=== PATIENT | female | born 1930 | race Caucasian/White ===

== ENCOUNTER 2018-03-11 13:20 | Inpatient (IN) | payer MEDICARE, OTHER ==
[~2018-03-11] VITALS: Ht 154.9 cm; Wt 50.4 kg
[2018-03-11 14:41] LABS: BASOPHILS % 0.2 % (0.0-1.0); EOSINOPHILS % 0.1 % (0.0-6.0); HEMATOCRIT 34.4 % (34.2-44.1); LYMPHOCYTES % 8.4 % (18.0-39.1); MEAN CORPUSCULAR HEMOGLOBIN 28.9 pg (28-32); MEAN CORPUSCULAR VOLUME 90.5 fL (81-99); MONOCYTES # (AUTO) 0.5 (0.2-0.8); MONOCYTES % 4.3 % (4.4-11.3); NEUTROPHILS # (AUTO) 10.4 (2.1-6.9); NEUTROPHILS % 86.6 % (38.7-80.0); PLATELET COUNT 481 x10e3/uL (140-360); RED CELL DISTRIBUTION WIDTH 13.5 % (11.7-14.4)
[2018-03-11 14:53] LABS: INR 0.9
[2018-03-11 14:54] LABS: PARTIAL THROMBOPLASTIN TIME 34.1 seconds (23.8-35.5)
--- NOTE | 2018-03-11 15:02 | Diagnostic Imaging Report ---
Exam: Radiographs of bilateral hips and pelvis (five views) Comparison: <None.> Findings: There is diffuse osteopenia. Views of bilateral hips demonstrate moderate degenerative changes with joint space narrowing and subchondral sclerosis. No evidence of fracture or malalignment. Frontal radiograph of the pelvis demonstrate no evidence of displaced fracture. There are degenerative changes in the lower lumbar spine and bilateral sacroiliac joints. Bowel gas partially obscures visualization of the right hemisacrum. A linear lucency overlying the right hemisacrum likely represents bowel gas rather than fracture. Impression: No evidence of fracture or malalignment in bilateral hips or pelvis. Bowel gas partially obscures visualization of the right hemisacrum. A linear lucency overlying the right hemisacrum likely represents bowel gas rather than fracture. If there is clinical concern for fracture at this location, dedicated sacral radiographs may be considered. Signed by: Dr. Don Jack MD on 03/11/2018 2:59 PM
[2018-03-11 15:04] LABS: ALANINE AMINOTRANSFERASE 8 IU/L (0-55); ALBUMIN 2.4 g/dL (3.5-5.0); ALBUMIN/GLOBULIN RATIO 0.6 (0.8-2.0); ALKALINE PHOSPHATASE 74 IU/L (40-150); ANION GAP 14.3 mmol/L (8-16); BLOOD UREA NITROGEN 17 mg/dL (7-26); BUN/CREATININE RATIO 23 (6-25); CARBON DIOXIDE 27 mmol/L (22-29); CHLORIDE 93 mmol/L (98-107); CREATINE KINASE 34 IU/L (29-168); CREATININE, SERUM 0.73 mg/dL (0.57-1.11); EST GLOMERULAR FILTRATION RATE > 60 ML/MIN (60-); GLUCOSE 214 mg/dL (74-118); LIPASE 11 U/L (8-78); POTASSIUM 4.3 mmol/L (3.5-5.1); SODIUM 130 mmol/L (136-145)
[2018-03-11] MEDS ORDERED: HEPARIN 25,000 UNIT/D5W 250ML 250 ML IV SCH (15:30)
[2018-03-11 16:28] LABS: BILIRUBIN,URINE NEGATIVE (NEGATIVE); CLARITY,URINE SL CLOUDY (CLEAR); COLOR,URINE YELLOW (YELLOW); KETONES,URINE NEGATIVE (NEGATIVE); LEUKOCYTE ESTERASE ,URINE 2+ (NEGATIVE); NITRITE,URINE NEGATIVE (NEGATIVE); PROTEIN,URINE DIPSTICK NEGATIVE (NEGATIVE); URINE UROBILINOGEN 0.2 mg/dL (0.2 - 1)
[2018-03-11 16:47] LABS: AMORPHOUS SEDIMENT,URINE MODERATE (FEW); BACTERIA,URINE FEW /HPF
[2018-03-11] MEDS ORDERED: HEPARIN SOD (PORCINE) 5,000 UNIT/ML VIAL IV ONE (17:00)
[2018-03-11] MEDS: CEFTRIAXONE SOD 1 GM VIAL IV SCH (17:09)
[2018-03-11] MEDS: HEPARIN 25,000U/0.45% NS 250ML 800 UNIT in SODIUM CHLORIDE 0.9% 250ML 0 ML IV SCH (17:42)
[2018-03-11] MEDS ORDERED: DEXTROSE 50% SYRINGE 50 ML IV PRN (18:15)
[2018-03-11] MEDS ORDERED: IOPAMIDOL 370 MG/ML 200 ML INFUS..BTL INJ ONE (18:33)
[2018-03-11] MEDS ORDERED: SODIUM CHLORIDE 0.9% 50ML 50 ML ONE ×2 (18:33)
[2018-03-11 19:40] VITALS: BP 115/56
[2018-03-11 19:49] VITALS: BP 115/56
[2018-03-11] MEDS: INSULIN REGULAR, HUMAN 100 UNIT/1 ML 3ML VIAL SQ SCH (19:50)
--- NOTE | 2018-03-11 20:33 | Diagnostic Imaging Report ---
EXAMINATION: CT of the chest, abdomen and pelvis with contrast. TECHNIQUE: Helical CT images of the chest, abdomen and pelvis were performed from the lung apices to the lesser trochanters after the intravenous administration of 150 cc of Isovue 300 and the oral administration of none. Coronal and sagittal reformatted images were obtained. Dose modulation, iterative reconstruction, and/or weight based adjustment of the mA/kV was utilized to reduce the radiation dose to as low as reasonably achievable. COMPARISON: None. CLINICAL HISTORY:Weakness and weight loss DISCUSSION: CHEST: LINES/TUBES: None. LUNGS AND AIRWAYS: The lungs and airways are normal with no focal abnormality demonstrated. PLEURA: The pleural spaces are clear. HEART AND MEDIASTINUM: The thyroid gland is normal. Coronary artery calcifications. Hiatal hernia. LYMPH NODES: No significant mediastinal, hilar or axillary lymphadenopathy is seen. BONES AND SOFT TISSUES: No bony destructive lesions. No soft tissue abnormalities. ABDOMEN/PELVIS: HEPATOBILIARY:No focal hepatic lesions. No biliary ductal dilation. The gallbladder is normal. SPLEEN: No splenomegaly. PANCREAS: No focal masses or ductal dilatation. ADRENALS: No adrenal nodules. KIDNEYS/URETERS: The kidneys are symmetric with normal enhancement. No solid mass lesions. Moderate bilateral chronic hydronephrosis PELVIC ORGANS/BLADDER: Bladder is mildly deviated rightward. Complex mass midline of the pelvis measures 13.5 cm in craniocaudal dimension by 12.5 x 11.8 cm in axial dimension. The mass is peripherally solid with central cystic component versus necrosis. The mass appears to be drained by the right gonadal vein. The uterus is not visualized. PERITONEUM/RETROPERITONEUM: No free air or fluid. LYMPH NODES: No intra-abdominal,retroperitoneal, pelvic or inguinal lymphadenopathy. VESSELS: Vascular calcifications. GI TRACT: No distention or wall thickening. 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 IMPRESSION: 13.5 cm pelvic solid and cystic mass favored to be adnexal in origin such as an ovarian epithelial neoplasm. Chronic moderate hydronephrosis of the kidneys secondary to pelvic mass. Signed by: Dr. Dandre Rodrigues M.D. on 03/11/2018 8:30 PM
[2018-03-11] MEDS: TEMAZEPAM 15 MG CAP PO PRN (21:49)
[2018-03-11 22:55] VITALS: BP 115/56
[2018-03-12] VITALS (7 sets, daily range): BP systolic 104–117; BP diastolic 52–68
[2018-03-12 00:44] LABS: INR 0.94; PROTHROMBIN TIME 13.4 seconds (11.9-14.5)
[2018-03-12] MEDS ORDERED: AGGRENOX 25 MG-1 CAP (00:53)
[2018-03-12] MEDS ORDERED: ARICEPT5 MG PO (00:53)
[2018-03-12] MEDS: CEFTRIAXONE SOD 1 GM VIAL IV SCH ×2 (04:01→17:30)
[2018-03-12 06:54] LABS: BASOPHILS % 0.3 % (0.0-1.0); EOSINOPHILS # (AUTO) 0.1 (0.0-0.4); EOSINOPHILS % 0.6 % (0.0-6.0); HEMATOCRIT 32.4 % (34.2-44.1); HEMOGLOBIN 10.3 g/dL (12.0-16.0); LYMPHOCYTES # (AUTO) 1.5 (1.0-3.2); LYMPHOCYTES % 17.6 % (18.0-39.1); MEAN CORPUSCULAR HEMOGLOBIN 28.9 pg (28-32); MEAN CORPUSCULAR HGB CONC 31.8 g/dL (31-35); MEAN CORPUSCULAR VOLUME 90.8 fL (81-99); MONOCYTES # (AUTO) 0.6 (0.2-0.8); MONOCYTES % 6.8 % (4.4-11.3); NEUTROPHILS # (AUTO) 6.5 (2.1-6.9); NEUTROPHILS % 74.2 % (38.7-80.0); PLATELET COUNT 439 x10e3/uL (140-360); RED BLOOD COUNT 3.57 x10e6/uL (3.6-5.1); RED CELL DISTRIBUTION WIDTH 13.8 % (11.7-14.4)
[2018-03-12] MEDS: HEPARIN 25,000U/0.45% NS 250ML 800 UNIT in SODIUM CHLORIDE 0.9% 250ML 0 ML IV SCH ×2 (07:00→13:20)
[2018-03-12 07:16] LABS: CREATINE KINASE 30 IU/L (29-168)
[2018-03-12 07:18] LABS: ALANINE AMINOTRANSFERASE 6 IU/L (0-55); ALBUMIN 2.1 g/dL (3.5-5.0); ALBUMIN/GLOBULIN RATIO 0.6 (0.8-2.0); ALKALINE PHOSPHATASE 64 IU/L (40-150); ANION GAP 16.3 mmol/L (8-16); BLOOD UREA NITROGEN 15 mg/dL (7-26); BUN/CREATININE RATIO 22 (6-25); CALCIUM 8.7 mg/dL (8.4-10.2); CARBON DIOXIDE 27 mmol/L (22-29); CHLORIDE 98 mmol/L (98-107); CREATININE, SERUM 0.69 mg/dL (0.57-1.11); EST GLOMERULAR FILTRATION RATE > 60 ML/MIN (60-); GLUCOSE 87 mg/dL (74-118); POTASSIUM 4.3 mmol/L (3.5-5.1); SODIUM 137 mmol/L (136-145)
[2018-03-12] MEDS: INSULIN REGULAR, HUMAN 100 UNIT/1 ML 3ML VIAL SQ SCH ×4 (07:30→21:00)
[2018-03-12] MEDS: ASPIRIN 81 MG ENTERIC COATED PO SCH (08:37)
[2018-03-12] MEDS: TEMAZEPAM 15 MG CAP PO PRN (21:11)
[2018-03-13] VITALS (7 sets, daily range): BP systolic 99–125; BP diastolic 54–63
[2018-03-13] MEDS: CEFTRIAXONE SOD 1 GM VIAL IV SCH ×2 (05:39→16:35)
[2018-03-13] MEDS: HEPARIN 25,000U/0.45% NS 250ML 800 UNIT in SODIUM CHLORIDE 0.9% 250ML 0 ML IV SCH (07:00)
[2018-03-13] MEDS: INSULIN REGULAR, HUMAN 100 UNIT/1 ML 3ML VIAL SQ SCH ×4 (07:30→20:51)
[2018-03-13] MEDS: ASPIRIN 81 MG ENTERIC COATED PO SCH (07:44)
[2018-03-13] MEDS ORDERED: HEPARIN 25,000U/0.45% NS 250ML 800 UNIT in SODIUM CHLORIDE 0.9% 250ML 0 ML IV SCH (13:30)
[2018-03-13] MEDS: TEMAZEPAM 15 MG CAP PO PRN (21:27)
[2018-03-14] VITALS (7 sets, daily range): BP systolic 102–125; BP diastolic 53–58
[2018-03-14] MEDS: CEFTRIAXONE SOD 1 GM VIAL IV SCH ×2 (04:56→16:53)
[2018-03-14] MEDS: HEPARIN 25,000U/0.45% NS 250ML 800 UNIT in SODIUM CHLORIDE 0.9% 250ML 0 ML IV SCH (07:00)
[2018-03-14] MEDS: INSULIN REGULAR, HUMAN 100 UNIT/1 ML 3ML VIAL SQ SCH ×4 (07:30→21:00)
[2018-03-14] MEDS: ASPIRIN 81 MG ENTERIC COATED PO SCH (08:13)
[2018-03-14] MEDS: NYSTATIN 15 GM POWDER UD BTL TOP SCH ×2 (16:25→21:00)
[2018-03-14] MEDS: BALSAM PERU/CASTOR OIL 60 GM OINT...G. TP SCH (21:00)
[2018-03-14] MEDS: TEMAZEPAM 15 MG CAP PO PRN (21:00)
[2018-03-15] VITALS (8 sets, daily range): BP systolic 92–115; BP diastolic 51–62
[2018-03-15] MEDS: HEPARIN 25,000U/0.45% NS 250ML 800 UNIT in SODIUM CHLORIDE 0.9% 250ML 0 ML IV SCH (02:26)
[2018-03-15] MEDS: CEFTRIAXONE SOD 1 GM VIAL IV SCH ×2 (05:00→17:30)
[2018-03-15 06:45] LABS: BASOPHILS % 0.2 % (0.0-1.0); EOSINOPHILS # (AUTO) 0.1 (0.0-0.4); EOSINOPHILS % 0.5 % (0.0-6.0); HEMATOCRIT 31.9 % (34.2-44.1); HEMOGLOBIN 10.4 g/dL (12.0-16.0); LYMPHOCYTES # (AUTO) 1.5 (1.0-3.2); LYMPHOCYTES % 11.7 % (18.0-39.1); MEAN CORPUSCULAR HEMOGLOBIN 29.2 pg (28-32); MEAN CORPUSCULAR HGB CONC 32.6 g/dL (31-35); MEAN CORPUSCULAR VOLUME 89.6 fL (81-99); MONOCYTES # (AUTO) 0.6 (0.2-0.8); MONOCYTES % 4.3 % (4.4-11.3); NEUTROPHILS # (AUTO) 10.9 (2.1-6.9); NEUTROPHILS % 82.8 % (38.7-80.0); PLATELET COUNT 494 x10e3/uL (140-360); RED BLOOD COUNT 3.56 x10e6/uL (3.6-5.1); RED CELL DISTRIBUTION WIDTH 14.2 % (11.7-14.4)
[2018-03-15 07:13] LABS: ANION GAP 14.8 mmol/L (8-16); BLOOD UREA NITROGEN 16 mg/dL (7-26); BUN/CREATININE RATIO 22 (6-25); CALCIUM 8.6 mg/dL (8.4-10.2); CARBON DIOXIDE 28 mmol/L (22-29); CHLORIDE 97 mmol/L (98-107); CREATININE, SERUM 0.72 mg/dL (0.57-1.11); EST GLOMERULAR FILTRATION RATE > 60 ML/MIN (60-); GLUCOSE 96 mg/dL (74-118); MAGNESIUM 1.7 MG/DL (1.3-2.1); POTASSIUM 4.8 mmol/L (3.5-5.1); SODIUM 135 mmol/L (136-145)
[2018-03-15] MEDS: INSULIN REGULAR, HUMAN 100 UNIT/1 ML 3ML VIAL SQ SCH ×4 (07:30→20:59)
[2018-03-15 07:33] LABS: INR 0.87; PROTHROMBIN TIME 12.7 seconds (11.9-14.5)
[2018-03-15 07:35] LABS: PARTIAL THROMBOPLASTIN TIME 63.9 seconds (23.8-35.5)
[2018-03-15] MEDS: NYSTATIN 15 GM POWDER UD BTL TOP SCH ×2 (08:52→20:59)
[2018-03-15] MEDS: ASPIRIN 81 MG ENTERIC COATED PO SCH (08:52)
[2018-03-15] MEDS: BALSAM PERU/CASTOR OIL 60 GM OINT...G. TP SCH ×2 (08:52→20:59)
[2018-03-15] MEDS: TEMAZEPAM 15 MG CAP PO PRN (20:58)
[2018-03-16] VITALS (7 sets, daily range): BP systolic 97–142; BP diastolic 62–75
[2018-03-16] MEDS: CEFTRIAXONE SOD 1 GM VIAL IV SCH ×2 (04:25→17:19)
[2018-03-16] MEDS: INSULIN REGULAR, HUMAN 100 UNIT/1 ML 3ML VIAL SQ SCH ×4 (07:30→21:00)
[2018-03-16] MEDS: BALSAM PERU/CASTOR OIL 60 GM OINT...G. TP SCH ×2 (08:00→21:08)
[2018-03-16] MEDS: NYSTATIN 15 GM POWDER UD BTL TOP SCH ×2 (08:00→21:08)
[2018-03-16] MEDS: ASPIRIN 81 MG ENTERIC COATED PO SCH (09:10)
--- OUTSIDE RECORDS SUMMARY | 2018-03-16 13:04 | XMS REPORT ---
Author Author [facility] Address Unknown Phone Unavailable Care Team Providers Care Hand Etcher Helper Name Role Phone KELSIE DE LA ROSA Unavailable Unavailable Problems This patient has no known problems. Allergies, Adverse Reactions, Alerts This patient has no known allergies or adverse reactions. Medications This patient has no known medications. Results Test Description Test Time Test Comments Text Results Atomic Results Result Comments CT ABDOMEN/PELVIS W 2018-03-11 20:18:00 [place] [address] Patient Name: MARI DASH MR #: [id number] : 1930 Age/Sex: 87/F Req #: [id number] [facility] Physician: KELSIE DE LA ROSA MD Ordered by: SID LEAHY MD Report #: [id number] Location: MED/SURG3 Room/Bed: [facility] Procedure: [id number] CT/CT ABDOMEN/PELVIS W Exam Date: 03/11/18 Exam Time: 1628 REPORT STATUS: Signed EXAMINATION: CT of the chest, abdomen and pelvis with contrast. TECHNIQUE: Helical CT images of the chest, abdomen and pelvis were performed from the lung apices to the lesser trochanters after the intravenous administration of 150 cc of Isovue 300 and the oral administration of none. Coronal and sagittal reformatted images were obtained. Dose modulation, iterative reconstruction, and/or weight based adjustment of the mA/kV was utilized to reduce the radiation dose to as low as reasonably achievable. COMPARISON: None. CLINICAL HISTORY:Weakness and weight loss DISCUSSION: CHEST: LINES/TUBES: None. LUNGS AND AIRWAYS: The lungs and airways are normal with no focal abnormality demonstrated. PLEURA: The pleural spaces are clear. HEART AND ME DIASTINUM: The thyroid gland is normal. Coronary artery calcifications. Hiatal hernia. LYMPH NODES: No significant mediastinal, hilar or axillary lymphadenopathy is seen. BONES AND SOFT TISSUES: No bony destructive lesions. No soft tissue abnormalities. ABDOMEN/PELVIS: HEPATOBILIARY:No focal hepatic lesions. No biliary ductal dilation. The gallbladder is normal. SPLEEN: No splenomegaly. PANCREAS: No focal masses or ductal dilatation. ADRENALS: No adrenal nodules. KIDNEYS/URETERS: The kidneys are symmetric with normal enhancement. No solid m ass lesions. Moderate bilateral chronic hydronephrosis PELVIC ORGANS/BLADDER: Bladder is mildly deviated rightward. Complex mass midline of the pelvis measures 13.5 cm in craniocaudal dimension by 12.5 x 11.8 cm in axial dimension. The mass is peripherally solid with central cystic component versus necrosis. The mass appears to be drained by the right gonadal vein. The uterus is not visualized. PERITONEUM/RETROPERITONEUM: No free air or fluid. LYMPH NODES: No intra-abdominal,retroperitoneal, pelvic or inguinal lymphadenopathy. VESSELS: Vascular calcifications. GI TRACT: No distention or wall thickening. 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 IMPRESSION: 13.5 cm pelvic solid and cystic mass favored to be adnexal in origin such as an ovarian epithelial neoplasm. Chronic moderate hydronephrosis of the kidneys secondary to pelvic mass. Signed by: Dr. Loan Stockton M.D. on 03/11/2018 8:30 PM Dictated By: LOAN STOCKTON MD 29 Transcribed By: CARLENE on 03/11/182029 COPY TO: SID LEAHY MD CT CHEST W 2018-03-11 20:18:00 [place] [address] Patient Name: MARI DASH MR #: [id number] : 1930 Age/Sex: 87/F Req #: [id number] Adm Physician: KELSIE DE LA ROSA MD Ordered by: SID LEAHY MD Report #: [id number] Location: [facility] Room/Bed: [facility] Procedure: [id number] CT/CT CHEST W Exam Date: 03/11/18 Exam Time: 1628 REPORT STATUS: Signed EXAMINATION: CT of the chest, abdomen and pelvis with contrast. TECHNIQUE: Helical CT images of the chest, abdomen and pelvis were performed from the lung apices to the lesser trochanters after the intravenous administration of 150 cc of Isovue 300 and the oral administration of none. Coronal and sagittal reformatted images were obtained. Dose modulation, iterative reconstruction, and/or weight based adjustment of the mA/kV was utilized to reduce the radiation dose to as low as reasonably achievable. COMPARISON: None. CLINICAL HISTORY:Weakness and weight loss DISCUSSION: CHEST: LINES/TUBES: None. LUNGS AND AIRWAYS: The lungs and airways are normal with no focal abnormality demonstrated. PLEURA: The pleural spaces are clear. HEART AND MEDIASTINUM: The thyroid gland is normal. Coronary artery calcifications. Hiatal hernia. LYMPH NODES: No significant mediastinal, hilar or axillary lymphadenopathy is seen. BONES AND SOFT TISSUES: No bony destructive lesions. No soft tissue abnormalities. ABDOMEN/PELVIS: HEPATOBILIARY:No focal hepatic lesions. No biliary ductal dilation. The gallbladder is normal. SPLEEN: No splenomegaly. PANCREAS: No focal masses or ductal dilatation. ADRENALS: No adrenal nodules. KIDNEYS/URETERS: The kidneys are symmetric with normal enhancement. No solid mass lesions. Moderate bilateral chronic hydronephrosis PELVIC ORGANS/BLADDER: Bladder is mildly deviated rightward. Complex mass midline of the pelvis measures 13.5 cm in craniocaudal dimension by 12.5 x 11.8 cm in axial dimension. The mass is peripherally solid with central cystic component versus necrosis. The mass appears to be drained by the right gonadal vein. The uterus is not visualized. PERITONEUM/RETROPERITONEUM: No free air or fluid. LYMPH NODES: No intra-abdominal,retroperitoneal, pelvic or inguinal lymphadenopathy. VESSELS: Vascular calcifications. GI TRACT: No distention or wall thickening. 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 IMPRESSION: 13.5 cm pelvic solid and cystic mass favored to be adnexal in origin such as an ovarian epithelial neoplasm. Chronic moderate hydronephrosis of the kidneys secondary to pelvic mass. Signed by: Dr. Loan Stockton M.D. on 03/11/2018 8:30 PM Dictated By: LOAN STOCKTON MD 29 Transcribed By: CARLENE on 03/11/182029 COPY TO: SID LEAHY MD HIPS BILAT 5 VWS (+/- PELVIS) 2018-03-11 14:55:00 [place] [address] Patient Name: MARI DASH MR #: [id number] : 1930 Age/Sex: 87/F Req #: [id number] Adm Physician: Ordered by: SID LEAHY MD Report #: [id number] Location: ER Room/Bed: Procedure: [id number] DX/HIPS BILAT 5 VWS (+/- PELVIS) Exam Date: Exam Time: REPORT STATUS: Signed Exam: Radiographs of bilateral hips and pelvis (five views) Comparison: <None.> Findings: There is diffuse osteopenia. Views of bilateral hips demonstrate moderate degenerative changes with joint space narrowing and sub chondral sclerosis. No evidence of fracture or malalignment. Frontal radiograph of the pelvis demonstrate no evidence of displaced fracture. There are degenerative changes in the lower lumbar spine and bilateral sacroiliac joints. Bowel gas partially obscures visualization of the right hemisacrum. A linear lucency overlying the right hemisacrum likely represents bowel gas rather than fracture. Impression: No evidence of fracture or malalignment in bilateral hips or pelvis. Bowel gas partially obscures visualization of the right hemisacrum. A linear lucency overlying the right hemisacrum likely represents bowel gas rather than fracture. If there is clinical concern for fracture at this location, dedicated sacral radiographs may be considered. Signed by: Dr. Colin Way MD on 03/11/2018 2:59 PM Dictated By: COLIN WAY MD 58 Transcribed By: CARLENE on 03/11/181458 COPY TO: SID LEAHY MD CHEST 2 VIEWS [place] [address] Patient Name: MARI DASH MR #: [id number] : 1930 Age/Sex: 86/F Req #: [id number] Adm Physician: Ordered by: KELSIE DE LA ROSA MD Report #: [id number] Location: [facility] Room/Bed: Procedure: [id number] DX/CHEST 2 VIEWS Exam Date: 04/01/17 Exam Time: 1350 REPORT STATUS: Signed PROCEDURE: Frontal and lateral views of the chest. COMPARISON: None. INDICATIONS: ASBESTOS EXPOSURE FINDINGS: Lines/tubes: None. Lungs: The lungs are well inflated and clear. There is no evidence of pneumonia or pulmonary edema. Pleura: Mild blunting of both costophrenic sulci. No pneumothorax. Heart and mediastinum: Aortic calcifications. The heart and the mediastinum are otherwise unremarkable. Bones: Degenerative changes of the right glenohumeral joint and thoracic spine. Decreased subacromial space in the left shoulder may suggest rotator cuff tear. IMPRESSION: Small bilateral pleural effusions versus pleural scarring/thickening. Dictated by: Jonathan Girard M.D. on 04/01/2017 at 14:23 Electronically approved by: Jonathan Girard M.D. on 04/01/2017 at 14:39 Dictated By: JONATHAN GIRARD MD 1439 Transcribed By: ANDREA on 04/01/17 1439 COPY TO: KELSIE DE LA ROSA MD
[2018-03-16] MEDS: TEMAZEPAM 15 MG CAP PO PRN (21:08)
[2018-03-17] VITALS: BP 133/65
[2018-03-17 04:00] VITALS: BP 131/81
[2018-03-17] MEDS: CEFTRIAXONE SOD 1 GM VIAL IV SCH (04:58)
[2018-03-17] MEDS ORDERED: ENOXAPARIN SOD INJ 60 MG/0.6 ML SYR SC STA (05:44)
[2018-03-17] MEDS ORDERED: BENZONATATE 100 MG CAP PO ONE (06:30)
[2018-03-17] MEDS: INSULIN REGULAR, HUMAN 100 UNIT/1 ML 3ML VIAL SQ SCH (07:30)
[2018-03-17 07:58] VITALS: BP 125/59
[2018-03-17 08:00] VITALS: BP 125/59
[2018-03-17] MEDS: ASPIRIN 81 MG ENTERIC COATED PO SCH (09:00)
--- NOTE | 2018-05-29 15:45 | Discharge Summary ---
DISCHARGE DIAGNOSES 1. Ovarian cancer. 2. Deep venous thrombosis of the left leg. 3. Diabetes. HISTORY OF PRESENT ILLNESS AND HOSPITAL COURSE: See hospital chart for full details. Patient is an 87-year-old lady who presented with weight loss, anorexia, left leg swelling, and was found have a DVT where she was also found on CT scan to have a large ovarian mass most likely secondary to ovarian cancer. So, she was set up and transferred to an oncologist near her house to have further evaluation and treatment. Please see hospital chart for full details. KELSIE DE LA ROSA MD Job#: [id number] [facility]
== END 2018-03-17 12:33 | disposition home or self-care (01) | DRG 299 ==
LOC: ER 13:20 → ERHOLD 17:22 → MED/SURG3 18:37
PROVIDERS: ADMIT Internal Medicine; ATTEND Internal Medicine
DX: I82.412 Acute embolism and thrombosis of left femoral vein (principal); E43 Unspecified severe protein-calorie malnutrition; N13.30 Unspecified hydronephrosis; C56.2 Malignant neoplasm of left ovary; C56.1 Malignant neoplasm of right ovary; I82.432 Acute embolism and thrombosis of left popliteal vein; I82.442 Acute embolism and thrombosis of left tibial vein; Z68.20 Body mass index [BMI] 20.0-20.9, adult; I48.91 Unspecified atrial fibrillation; Z79.01 Long term (current) use of anticoagulants; E11.9 Type 2 diabetes mellitus without complications; I10 Essential (primary) hypertension; Z88.1 Allergy status to other antibiotic agents; N83.9 Noninflammatory disorder of ovary, fallopian tube and broad ligament, unspecified; D64.9 Anemia, unspecified
CPT/HCPCS: 36415; 71260; 73523; 74177; 80048; 80053; 81001; 82378; 82550; 82553; 82948; 83605; 83690; 83735; 83880; 84484; 85025; 85610; 85730; 86304; 87086; 87186; 93005; 93306; 93971; 96361; 99284; J0696; J1644; J1650; J7050; Q9967